=== PATIENT | male | born 1980 | race Caucasian/White ===

== ENCOUNTER 2024-03-10 13:20 | Emergency (ER) | payer OTHER, SELFPAY ==
[2024-03-10 13:26] VITALS: BP 123/74; PULSE 68; RESP 16; TEMP 36.8; O2SAT 99; BMI 19.8
--- NOTE | 2024-03-10 15:01 | ED.GENADULT ---
HPI - General Adult General Date Seen: 03/10/24 Chief complaint: Eye Problems Stated complaint: L eye irritation Time Seen by Provider: 03/10/24 15:01 History of Present Illness HPI narrative: 43-year-old male presenting to the ER today for irritation of his left. He has been having symptoms of his left eye for about a week and feels like there may be a foreign body there. He has no known injury Per the [facility] medical record, He called the [facility] triage line today because of left eye redness, watering. He reports that he had had intermittent episodes of watery and redness in his left eye for about 10 days. 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 He does not wear glasses or contacts. No other chemical splash to his eye. No irritation in a time of his right eye. His eyes began becoming more irritated for the past several days. Today he noticed a little bump on these lateral scleral surface of his left eye. He has had intermittent tearing of his eye. He had 1 episode he had a little bit of white material on his eyelashes but no other greenish yellow purulent drainage. No swelling or redness of his eye. He has had some eye pain. There was some reported the [facility] triage line that he is actually having a headache, but that is not accurate. All the pain is in his eyeball itself. He believes he is up-to-date with tetanus. Related Data Home Medications ?Medication ?Instructions ?Recorded ?Confirmed No Known Home Medications 03/10/24 03/10/24 Allergies Allergy/AdvReac Type Severity Reaction Status Date / Time No Known Drug Allergies Allergy Verified 03/10/24 13:25 [facility] Social History Smoking Status: Never smoker How often do you have a drink containing alcohol: never AUDIT-C Alcohol total score: 0 Non-prescribed substance use: denies use Exam Narrative: Exam Narrative: Constitutional: Appears well-developed and well-nourished. Active. Non-toxic appearing. HENT: Head: Atraumatic. No signs of injury. Nose: No nasal discharge. Mouth/Throat: Mucous membranes are moist. Pharynx is normal. Tonsils symmetric. Uvula midline. Airway patent. Eyes: Visual acuity (R): 20/25, (L): 20/40 PERRLA, EOMI. No exophthalmos or enophthalmos. Mild injection of the left scleral conjunctivae and a little bit of chemosis on the lateral conjunctiva. I do not see any evidence for foreign body under the upper or lower lids of the left eye. No purulent drainage from the eyelid edge. Slit Lamp Exam: Lids: No foreign body noted in detailed exam upper and lower lids/margins Anterior Chamber: No cells or flare, No hyphema. No hypopyon. Cornea: There is a very small roughly 1 mm round lesion visible under white light with the slit lamp. This almost appears to be a small flap of cornea that has been torn up and nearly avulsed and then is now laying flat again. No foreign body. Fluorescein staining: Confirms the small 1 mm U shaped defect in the central cornea just below the center at roughly the 6:30 position. It almost appears to be a either superficial corneal abrasion or a small corneal partial-thickness injury that created a flap. There is no evidence for any Ramon sign or full-thickness perforation into the anterior chamber. Anterior chamber is normal. No cell or flare. No hyphema or hypopyon. No perilimbal injection of the conjunctiva. Neck: Normal range of motion. Neck supple. No adenopathy. No stridor. Cardiovascular: Normal rate and regular rhythm. No murmur heard. No murmurs, rubs, or gallops. Brisk capillary refill Pulmonary/Chest: Effort normal. No stridor. No respiratory distress. No wheezes.No rhonchi. No rales. No retractions. Abdominal: Soft. Bowel sounds are normal. No distension. No mass. There is no tenderness. There is no rebound and no guarding. Musculoskeletal: Normal range of motion. No edema. No tenderness. No deformity. Neurological: Alert. Normal strength. No cranial nerve deficit or sensory deficit. Coordination normal. GCS eye subscore is 4. GCS verbal subscore is 5. GCS motor subscore is 6. Skin: Skin is warm. No rash noted. Const: Vital Signs, click to edit/add: Vital Signs - 24 hr 03/10/24 13:26 Temperature 98.2 F Pulse Rate [Pulse Oximeter] 68 Respiratory Rate 16 Blood Pressure [Ri ght Upper Arm] 123/74 Pulse Oximetry 99 Oxygen Delivery Me thod Room Air Course Vital Signs Vital signs: Initial Vital Signs Temperature 98.2 F 03/10/24 13:26 Temperature Source Temporal Artery Scan 03/10/24 13:26 Pulse Rate 68 03/10/24 13:26 Respiratory Rate 16 03/10/24 13:26 Blood Pressure 123/74 03/10/24 13:26 Blood Pressure Mean 90 03/10/24 13:26 Pulse Oximetry 99 03/10/24 13:26 Oxygen Delivery Method Room Air 03/10/24 13:26 Vital Signs Temperature 98.2 F 03/10/24 13:26 Pulse Rate 68 03/10/24 13:26 Respiratory Rate 16 03/10/24 13:26 Blood Pressure 123/74 03/10/24 13:26 Pulse Oximetry 99 03/10/24 13:26 Oxygen Delivery Method Room Air 03/10/24 13:26 Temperature 98.2 F 03/10/24 13:26 Pulse Rate 68 03/10/24 13:26 Respiratory Rate 16 03/10/24 13:26 Blood Pressure 123/74 03/10/24 13:26 Pulse Oximetry 99 03/10/24 13:26 Oxygen Delivery Method Room Air 03/10/24 13:26 Medical Decision Making MDM Narrative Medical decision making narrative: This patient presents with left eye discomfort intermittent for the past 10 days but getting worse for the past several days. Slit-lamp exam and Fluorescein exam shows staining consistent with a corneal abrasion. No foreign bodies in eyes or or lids or any foreign body imbedded in the sclera or other scleral laceration noted. No corneal ulcers. No herpetic dendrite. I cannot identify any retained contact or corneal foriegn body at this time. No signs of retinal abnormalities, dendritic lesions, open globe, acute glaucoma, or other serious eye disease. No signs of anterior chamber involvement such as endopthalmitis at this point. No sign of bacterial conjunctivitis. Lids are normal. Given the duration of the symptoms and the fact that it has been getting worse for the past couple of days, I am concerned that this is something other than a simple corneal abrasion. It almost appears to be a partial-thickness injury through the cornea creating a flap. Discussed with [facility]. They will see the patient in clinic today. Therefore will discharge him from the ER now and he will go directly to the ophthalmology clinic for further evaluation. Discussed plan of care with the patient and his and they are in agreement. Discharge Plan Discharge Clinical Impression: Corneal abrasion Instructions: Corneal Abrasion (DC) Additional Instructions: Please go directly to the eye Specialists at [facility] today. I suspect that he probably have a small injury to the front surface of your eye (a small laceration to your cornea). However it is very important for you to have it evaluated completely by the eye specialists. Please follow the directions by the eye specialists. If you have worsening symptoms such as worsening pain, decreasing vision, increasing redness or pus draining from your eye, please follow-up with the military technology specialist again or come back to the ER right away. Prescriptions: No Action No Known Home Medications Follow Up/Referrals: Provider,Not a Local [Primary Care Provider] - Stand Alone Forms: Smart Panel Info Instructions
== END 2024-03-10 15:54 | disposition home or self-care (01) ==
PROVIDERS: Emergency Provider Emergency Medicine
DX: S05.02XA Injury of conjunctiva and corneal abrasion without foreign body, left eye, initial encounter (principal)
CPT/HCPCS: 99282; 99283